=== PATIENT | female | born 2005 | race Two or more races ===

== ENCOUNTER 2024-11-10 07:14 | Emergency (ER) | payer SELFPAY ==
[2024-11-10 07:18] VITALS: BP 145/93; PULSE 100; TEMP 36.7; O2SAT 100; BMI 30.9
--- NOTE | 2024-11-10 07:26 | PC.NURSE ---
Swelling and bruising to right outer hand, skin pink and warm and pulses present. Ice pack given.
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
== END 2024-11-10 08:02 | disposition home or self-care (01) ==
PROVIDERS: Emergency Provider Emergency Medicine
DX: S62.336A Displaced fracture of neck of fifth metacarpal bone, right hand, initial encounter for closed fracture (principal); Y04.2XXA Assault by strike against or bumped into by another person, initial encounter
CPT/HCPCS: 29125; 73130; 99283